=== PATIENT | female | born 1975 | race Caucasian/White ===

== ENCOUNTER → 2023-08-12 06:29 | Day surgery (SDC) | payer BC, SELFPAY | LOC: GI 06:29 | PROVIDERS: ATTENDING PHYSICIAN Internal Medicine | DX: Z12.11 Encounter for screening for malignant neoplasm of colon (principal); D12.1 Benign neoplasm of appendix | CPT/HCPCS: G0121 ==

== ENCOUNTER 2023-12-24 11:14 | Day surgery (SDC) | payer BC, SELFPAY ==
[2023-12-18 08:34] VITALS: BMI 22.1
[2023-12-18 09:22] LABS: INR 1.39; PT 17.1 Sec (11.4-14.6)
[2023-12-18 09:23] LABS: APTT 31.4 Sec (23.4-35.0)
[2023-12-18 09:29] LABS: Hematocrit 40.6 % (37.0-47.0); Hemoglobin 14.3 g/dL (12.0-16.0); Mean Corp Hgb Conc. 35.2 g/dL (33.0-37.0); Mean Corpuscular Hgb 33.3 pg (27.0-31.0); Mean Corpuscular Volume 94.6 fL (81.0-99.0); Mean Platelet Volume 9.7 fL (7.4-10.4); Platelet Count 98 10^3/uL (130-400); Red Blood Cell Count 4.29 10^6/uL (4.20-5.40); Red Cell Dist. Width 12.7 % (11.5-14.5); White Blood Cell Count 3.2 10^3/uL (4.8-10.8)
[2023-12-18 10:56] LABS: Glycohemoglobin (HgbA1c) 4.3 % (4.0-5.6)
[2023-12-18 11:19] LABS: ALT (SGPT) 23 U/L (0-35); AST (SGOT) 56 U/L (14-36); Albumin 3.7 g/dl (3.5-5.0); Alkaline Phosphatase 84 U/L (38-126); Blood Urea Nitrogen 9 mg/dl (7-17); Calcium 8.6 mg/dl (8.4-10.2); Carbon Dioxide 26 mmol/L (22-30); Chloride 104 mmol/L (98-107); Estimated Creatinine Clearance 80 ml/min; Glucose 80 mg/dl (70-99); Potassium 3.9 mmol/L (3.5-5.1); Sodium 140 mmol/L (135-145); Total Bilirubin 1.7 mg/dl (0.2-1.3); Total Protein 6.5 g/dl (6.3-8.2); eGFR > 60.00
--- NOTE | 2023-12-19 16:10 | PTCARENOTE ---
Tania made aware of INR 1.39.
[2023-12-24] VITALS (11 sets, daily range): BP systolic 92–136; BP diastolic 47–105; BMI 22.1
[2023-12-24] MEDS: ENTEREG 12 MG PO (11:34)
[2023-12-24] MEDS: LYRICA 150 MG PO (11:34)
[2023-12-24] MEDS: TYLENOL 1000 MG PO (11:34)
[2023-12-24] MEDS: CELEBREX 200 MG PO (11:35)
[2023-12-24] MEDS: HEPARIN 5000 UNITS SC (11:35)
--- NOTE | 2023-12-24 15:04 | W.IMMPOSTOP ---
Surgical Immed Post Op Note
-
Primary Surgeon: Oskar Wild MD
Assisting Surgeon: BRIGID Palomino, Preston Francisco MD performing colonoscopy
Pre-op Diagnosis: Appendiceal orifice polyp
Post-op Diagnosis: Same
Procedure Performed: Laparoscopic appendectomy with partial cecectomy, lysis of adhesions greater than 15 minutes, colonoscopy, TAP block
Anesthesia Type: General
Specimen / Cultures: Appendix
Estimated Blood Loss: 20 mL
Complications: None
Operative Findings: Adhesions from the cecum to the right anterior abdominal wall, not involving the operative field; identified the appendix and lysed some adhesions from the appendix to the ligament of Treitz; divided the mesentery with the vessel
sealer; visualized the appendiceal polyp on colonoscopy and confirmed staple line to include polyp entirely; stapled and divided with greater than 1 cm of cecum; identified 1 site of bleeding along the staple line, controlled with a 5 mm clip
--- NOTE | 2023-12-24 15:07 | OR.RPT ---
Operative Report
Operative Report
DATE OF OPERATION: 12/24/2023
SURGEON: Oskar Wild MD
PREOPERATIVE DIAGNOSIS: Appendiceal orifice polyp
POSTOPERATIVE DIAGNOSIS: Appendiceal orifice polyp
OPERATION: Robotic appendectomy with partial cecectomy, lysis of adhesions greater than 15 minutes, colonoscopy, laparoscopic TAP block
ASSISTANTS:
1. BRIGID Palomino
2. Prabhu Francisco MD performed the colonoscopy
ANESTHESIA: General
ESTIMATED BLOOD LOSS: 20 mL
FINDINGS:
1. Appendix appeared normal; adhesions between the cecum and the anterior abdominal wall which did not involve our operative field and left these alone; lysed some adhesions between the appendix and the ligament of Treitz
2. Dr. Francisco performed colonoscopy and directly visualized the appendiceal orifice polyp, confirming its location; planned line of division included the polyp entirely
3. One spot of bleeding noted from the staple line, controlled with 5 mm clips
SPECIMENS:
1. Appendix
DRAINS: None
COMPLICATIONS: No immediate complications.
INDICATIONS: The patient is a 48-year-old female who was found to have an appendiceal orifice polyp of about 10 mm. She was offered endoscopic removal of the polyp versus surgical removal. After discussion of the risks and benefits of each, she
preferred moving forward with appendectomy and partial cecectomy. The operation was discussed with the patient in detail, including the risks, benefits and alternatives. Risks described included, but not limited to, bleeding, infection, damage to
nearby structures (i.e., bowel, bladder, epigastric vessels), recurrence, conversion to open, positive margin, possible bowel resection and anesthetic risks. The patient understood and agreed to proceed. The consent was signed and placed in the
chart.
PROCEDURE IN DETAIL: The patient was taken to the operating room and placed on the operating table in supine position. Sequential compression devices were placed bilaterally. General anesthesia was then induced and the patient was intubated without
complication. Bilateral arms were tucked. Yu catheter was placed with sterile technique. Anesthesia placed an orogastric tube. Preoperative antibiotics were given. The abdomen was shaved, prepped and draped in a sterile fashion. A marking
pen was used to kika out the midline. A time-out was then performed verifying the correct patient, procedure, operative site, positioning, and special equipment.
At Glass's point, using an 11 blade scalpel, an 8 mm incision was made. A Veress needle was used to obtain abdominal access. After 3 clicks, insufflation was initiated and the opening pressure was noted to be less than 8 mmHg. The abdomen was
insufflated to a pressure of 12, which the patient tolerated well. The 8 mm robotic trocar was then introduced and the robotic endoscope advanced. No injury from initial Veress placement or port placement was noted. The abdomen was explored. The
liver had chronic changes consistent with her history of alcoholic hepatitis. There were no concerning peritoneal lesions or superficial lesions on the liver.
In a diagonal fashion from the planned suprapubic port site (along the midline, 2 finger breadths above the pubic symphysis) to the Glass's point incision, 3 more robotic trocars were placed under direct visualization, taking care to avoid injury
to the epigastric vessels. The suprapubic port was placed through her prior tummy tuck incision. There was significant scar at the level of fascia, which had to be nicked with an 11 blade scalpel in order to successfully advance the 8 mm port.
This was done under direct laparoscopic visualization, ensuring no injury to the bladder. Then, the patient was placed in [id number] with slight Trendelenburg. The robot was docked from the patient's right side. From the suprapubic to Glass's
point, the instruments introduced were the bipolar grasper, camera, scissors and tip up grasper.
To begin, I grasped and elevated the cecum. There were some adhesions from the cecum and ascending colon to the anterior abdominal wall, extending laterally towards the paracolic gutter. These adhesions did not involve the tip of the cecum or
appendix and therefore were left alone. I swept the small bowel towards the left upper quadrant. While retracting the appendix superiorly, I divided the mesoappendix with the vessel sealer to the base of the appendix. The area was now free from
adhesions and well exposed. Dr. Francisco performed a colonoscopy and directly visualized the polyp, which was confirmed to be located at the appendiceal orifice. Using the tip up grasper, I demonstrated my planned staple line on colonoscopy view,
confirming good placement, no involvement of the ileocecal valve or terminal ileum and negative margins of the polyp. The CO2 was then suctioned from the cecum and the colonoscope was retracted to the proximal ascending colon. The suprapubic port
was upsized to 12 mm and the appendix with at least 1 cm of cecum was stapled with two blue loads of the 60 mm robotic stapler. The specimen was placed in an endoscopic retrieval bag and removed from the suprapubic incision. The colon was then
reinflated and the staple line was evaluated colonoscopically. The staple line was intact without bleeding and no visible polyp tissue.
The right lower quadrant was then irrigated with saline and suctioned. Hemostasis along the mesoappendix was confirmed. One spot on the staple line was noted to be oozing and three 5 mm clips were placed. Attention was turned to the pelvis and
this was also irrigated and suctioned. Next, the suprapubic port was removed and the fascia was closed with an 0-Vicryl stitch using a suture passer. A laparoscopic TAP block was performed, injecting a total of 40mL of 0.25% Marcaine with
epinephrine mixed with 0.4mg of dexamethasone were injected bilaterally in the transversus abdominis plane. The right lower quadrant was evaluated once more and hemostasis was confirmed. The remaining ports were removed under direct visualization,
no bleeding was noted. The abdomen was allowed to collapse. The skin of the ports were closed with 4-0 Monocryl in subcuticular fashion. The incisions were injected with an additional of 20 mL of 0.25% Marcaine with epinephrine and 0.2 mg of
dexamethasone. Dermabond was used for dressing
At this point, the procedure was complete. The patient was awoken and extubated without complication. The yu was removed. All needle, sponge and instrument counts were reported as correct. The patient tolerated the procedure well and was
transferred to the recovery room in stable condition.
Of note, Prabhu Francisco MD, biology laboratory assistant, was necessary to perform the intraoperative colonoscopy.
DICTATED BY: Oskar Wild MD
[2023-12-24] MEDS: DEMEROL 12.5 MG IV (15:23)
== END 2023-12-24 17:30 | disposition home or self-care (01) ==
LOC: SDS 11:14
PROVIDERS: ATTENDING PHYSICIAN Surgery; FAMILY PHYSICIAN Family Medicine
DX: K63.5 Polyp of colon (principal); D12.1 Benign neoplasm of appendix; K66.0 Peritoneal adhesions (postprocedural) (postinfection); K70.10 Alcoholic hepatitis without ascites; F10.11 Alcohol abuse, in remission
CPT/HCPCS: 44970; 44238; G0121; 88304; 36415; 71046; 80053; 83036; 85027; 85610; 85730; 86850; 86900; 86901

== ENCOUNTER → 2024-11-18 14:32 | Outpatient (REF) | payer OTHER, SELFPAY | LOC: HWRAD 14:32 | PROVIDERS: ATTENDING PHYSICIAN Family Medicine | DX: K76.6 Portal hypertension (principal); K70.30 Alcoholic cirrhosis of liver without ascites | CPT/HCPCS: 76700; 93975 ==